=== PATIENT | male | born 2005 | race Caucasian/White ===

== ENCOUNTER 2023-05-12 13:52 | Day surgery (SDC) | payer OTHER ==
[~2023-05-12] VITALS: Ht 177.8 cm; Wt 69.9 kg
[~2023-05-12 13:52] MED LIST: AMOX500 PO; ANTOXYBENA LEFTEAR; MEBE100 PO; PRED10 PO; PYRA250T PO
--- NOTE | 2023-05-12 14:34 | NUR ---
05/12/23 1434 Carmen Jay 2 IV ATTEMPT, TWO BLEW RIGHT AC SITE WAS A SUCCESSFUL IV START. PT WAS CALM THROUGHOUT ATTEMPTS.
--- NOTE | 2023-05-12 14:54 | NUR ---
05/12/23 1454 Estevan Langford ROPIVACAINE 0.5% 20 ML MIXED & VERIFIED W/ EPI 0.1 ML (1MG/ML), PER ORDER, TO MAKE ROPIVACAINE 0.5% 1:200,000 FOR INJECTION AT OPSITE BY DR EDWARD. 20 MLS INJECTED.
[2023-05-12 16:45] VITALS: BP 112/66
--- NOTE | 2023-05-12 17:17 | NUR ---
05/12/23 1717 Benjie Cam iv removed intACT. SITE WNL. PT REPORTED 3-4/10 PAIN AT TIME OF DISCHARGE. HE DESCRIBED PAIN TOLERABLE AND EXPRESSED READINESS TO RETURN HOME. FLACC 0-1/10.
== END 2023-05-12 16:59 | disposition home or self-care (01) ==
LOC: ORSCSDS 13:52
PROVIDERS: Podiatrist Foot & Ankle Surgery
PROC: 0Y6Q0Z0 Detachment at Left 1st Toe, Complete, Open Approach (ICD-10-PCS; principal; 2023-05-12 16:00)
DX: Q69.2 Accessory toe(s) (principal)
CPT/HCPCS: 88305; 88311; A9270; J0171; J0690; J1100; J2405; J2704; J2795; J3010; J7120